=== PATIENT | female | born 1985 | race Caucasian/White ===

== ENCOUNTER 2017-09-19 18:43 | Emergency (ER) | payer OTHER ==
[2017-09-19 22:22] VITALS: BP 106/74
== END 2017-09-19 22:22 | disposition home or self-care (01) ==
LOC: ED 18:43
DX: O20.0 Threatened abortion (principal); Z3A.26 26 weeks gestation of pregnancy; J45.909 Unspecified asthma, uncomplicated
CPT/HCPCS: Q0092